=== PATIENT | male | born 1940 | race Caucasian/White ===

== ENCOUNTER → 2017-07-22 | Outpatient (CLI) | payer MEDICARE ==
[~2017-07-22] MED LIST: ADV250 IH; ALPR0.25 PO; ATOR40TA69 PO; ATOR80TA PO; BENZ-17 PO; BENZ-51 PO; CEFU500T67 PO; CETI10CA5 PO; DOXY100C2 PO; FLUT8AER3 IH; FURO20TA6 PO; LEVO500T2 PO; LEVO500T89 PO; MONT10TA21 PO; MONT10TA24 PO; MULT-1258 PO; SERT100T PO; SYMB8060 IH; TIOT18CA3 IH; TIOT4MIS5 IH; TRAZ-144 PO
== END | disposition home or self-care (01) ==
LOC: RAH 13:53
PROVIDERS: ATTEND Family Medicine
DX: M85.88 Other specified disorders of bone density and structure, other site (principal)
CPT/HCPCS: 71100

== ENCOUNTER → 2017-08-05 | Outpatient (CLI) | payer MEDICARE | END | disposition home or self-care (01) | LOC: RAH 15:14 | PROVIDERS: ATTEND Family Medicine | DX: M50.321 Other cervical disc degeneration at C4-C5 level (principal); R07.81 Pleurodynia; R05 Cough | CPT/HCPCS: 71101; 72040 ==

== ENCOUNTER 2017-08-11 08:29 | Inpatient (IN) | payer MEDICARE ==
[~2017-08-11] VITALS: Ht 182.9 cm; Wt 99.8 kg
[~2017-08-11 08:29] MED LIST changes: -ADV250 IH; -ATOR80TA PO; -BENZ-17 PO; -CETI10CA5 PO; -FURO20TA6 PO; -MONT10TA21 PO; -MULT-1258 PO; -SERT100T PO; -SYMB8060 IH; -TIOT4MIS5 IH; -TRAZ-144 PO
[2017-08-11 09:03] LABS: BASOPHILS % (AUTO) 0.2 % (0.0-5.0); EOSINOPHILS % (AUTO) 0.3 % (0.0-8.0); HEMATOCRIT 41.4 % (42-54); LYMPHOCYTES % (AUTO) 11.3 % (21.0-51.0); MEAN CORPUSCULAR HEMOGLOBIN 32.3 pg (27.0-33.0); MEAN CORPUSCULAR HGB CONC 33.7 g/dL (32.0-36.0); MEAN CORPUSCULAR VOLUME 95.7 fL (79-99); MONOCYTES % (AUTO) 6.8 % (3.0-13.0); NEUTROPHILS % (AUTO) 81.4 % (40.0-77.0); PLATELET COUNT (AUTO) 251 K/uL (130-400); RED BLOOD CELL COUNT(AUTO) 4.33 MIL/uL (4.50-6.20); RED CELL DISTRIBUTION WIDTH 15.3 % (11.0-15.5); WHITE BLOOD COUNT (AUTO) 13.7 K/uL (4.8-10.8)
[2017-08-11 09:10] LABS: CREATININE 1.1 mg/dL (0.5-1.5); POTASSIUM 4.1 mmol/L (3.5-5.1)
[2017-08-11 09:15] LABS: ALBUMIN 3.4 g/dL (3.5-5.0); BILIRUBIN,TOTAL 0.5 mg/dL (0.2-1.0); TOTAL PROTEIN, SERUM 7.3 g/dL (6.0-8.3)
[2017-08-11] MEDS ORDERED: CEFTRIAXONE SODIUM 1 GM ONE (09:30)
[2017-08-11] MEDS ORDERED: SODIUM CHLORIDE 0.9% 100 ML IV ONE (09:30)
[2017-08-11] MEDS ORDERED: AZITHROMYCIN 250 MG TABLET PO ONE (09:30)
[2017-08-11] MEDS ORDERED: IOPAMIDOL-370 75 ML VIAL IV ONE (09:41)
[2017-08-11] MEDS ORDERED: SODIUM CHLORIDE 0.9% 1000ML 1,000 ML IV ONE ×2 (09:56→15:10)
[2017-08-11] MEDS ORDERED: METHYLPREDNISOLONE SOD SUCC 40MG/ML 1ML ONE (15:10)
[2017-08-11] MEDS ORDERED: LEVOFLOXACIN 500 MG/D5W 100 ML 100 ML ONE (15:11)
[2017-08-11] MEDS ORDERED: ENOXAPARIN SODIUM 40 MG/0.4 ML SYRINGE SQ ONE (15:11)
[2017-08-11] MEDS ORDERED: IPRATROPIUM/ALBUTEROL SULFATE 3 ML SOLUTION IH ONE ×3 (15:34→23:43)
[2017-08-11] MEDS: SODIUM CHLORIDE 0.9% 1000ML 1,000 ML IV SCH (19:45)
[2017-08-11] MEDS: METHYLPREDNISOLONE SOD SUCC 40MG/ML 1ML IVP SCH (21:00)
[2017-08-11] MEDS: FAMOTIDINE 20MG TAB 20 MG TAB PO SCH (21:00)
[2017-08-11] MEDS: INSULIN R PO SS1 SQ SCH (21:00)
[2017-08-11] MEDS ORDERED: FAMOTIDINE/PF 20 MG/2 ML VIAL IV ONE (21:04)
[2017-08-11] MEDS: IPRATROPIUM/ALBUTEROL SULFATE 3 ML SOLUTION IH SCH (23:49)
[2017-08-12] MEDS ORDERED: METHYLPREDNISOLONE SOD SUCC 40MG/ML 1ML ONE (00:38)
[2017-08-12 01:29] VITALS: BP 152/78
[2017-08-12] MEDS: IPRATROPIUM/ALBUTEROL SULFATE 3 ML SOLUTION IH SCH ×6 (01:42→22:42)
[2017-08-12] MEDS ORDERED: SYMB8060 IH (03:59)
[2017-08-12] MEDS ORDERED: FURO20TA6 PO (03:59)
[2017-08-12] MEDS ORDERED: ADV250 IH (03:59)
[2017-08-12] MEDS ORDERED: SERT100T PO (03:59)
[2017-08-12] MEDS ORDERED: CETI10CA5 PO (03:59)
[2017-08-12] MEDS ORDERED: TRAZ-144 PO (03:59)
[2017-08-12] MEDS ORDERED: MONT10TA21 PO (03:59)
[2017-08-12] MEDS ORDERED: MULT-1258 PO (03:59)
[2017-08-12] MEDS ORDERED: ATOR80TA PO (03:59)
[2017-08-12 05:00] VITALS: BP 148/79
[2017-08-12] MEDS: METHYLPREDNISOLONE SOD SUCC 40MG/ML 1ML IVP SCH ×3 (05:34→21:32)
[2017-08-12 05:46] LABS: HEMATOCRIT 39.9 % (42-54); MEAN CORPUSCULAR HEMOGLOBIN 32.8 pg (27.0-33.0); MEAN CORPUSCULAR VOLUME 96.4 fL (79-99); PLATELET COUNT (AUTO) 268 K/uL (130-400); RED BLOOD CELL COUNT(AUTO) 4.14 MIL/uL (4.50-6.20); RED CELL DISTRIBUTION WIDTH 15.3 % (11.0-15.5); WHITE BLOOD COUNT (AUTO) 9.5 K/uL (4.8-10.8)
[2017-08-12 05:55] LABS: INR 1.1 (0.85-1.15); PARTIAL THROMBOPLASTIN TIME 31.3 SEC (26.3-35.5); PROTHROMBIN TIME 11.5 SEC (9.6-11.6)
[2017-08-12 06:04] LABS: ALBUMIN 3.1 g/dL (3.5-5.0); BILIRUBIN,TOTAL 0.5 mg/dL (0.2-1.0); POTASSIUM 3.9 mmol/L (3.5-5.1)
[2017-08-12 06:24] LABS: B-TYPE NATRIURETIC PEPTIDE 79 pg/mL (0-100)
[2017-08-12] MEDS: INSULIN R PO SS1 SQ SCH ×4 (06:45→21:00)
[2017-08-12 08:59] LABS: ABG BASE EXCESS 0.9 mmol/L (-2.0-3.0); ABG HCO3 24.2 mmol/L (21.0-28.0); ABG OXYGEN SATURATION 89.1 % (95.0-99.0); ABG PCO2 35 mmHg (35-48)
[2017-08-12 09:02] VITALS: BP 141/66
[2017-08-12] MEDS: FAMOTIDINE 20MG TAB 20 MG TAB PO SCH ×2 (09:25→21:32)
[2017-08-12] MEDS: SODIUM CHLORIDE 0.9% 1000ML 1,000 ML IV SCH ×2 (09:26→21:56)
[2017-08-12] MEDS: ENOXAPARIN SODIUM 40 MG/0.4 ML SYRINGE SQ SCH (09:26)
[2017-08-12 11:00] VITALS: BP 144/74
[2017-08-12] MEDS: LEVOFLOXACIN 500 MG/D5W 100 ML 100 ML IV SCH (15:47)
[2017-08-12 16:00] VITALS: BP 129/61
[2017-08-12 20:00] VITALS: BP 137/72
[2017-08-13] VITALS: BP 138/84
[2017-08-13] MEDS: IPRATROPIUM/ALBUTEROL SULFATE 3 ML SOLUTION IH SCH ×4 (02:47→13:52)
[2017-08-13 04:00] VITALS: BP 137/78
[2017-08-13 05:26] LABS: BASOPHILS % (AUTO) 0.1 % (0.0-5.0); LYMPHOCYTES % (AUTO) 6.1 % (21.0-51.0); MEAN CORPUSCULAR HEMOGLOBIN 32.6 pg (27.0-33.0); MEAN CORPUSCULAR HGB CONC 34.2 g/dL (32.0-36.0); MEAN CORPUSCULAR VOLUME 95.6 fL (79-99); MONOCYTES % (AUTO) 5.1 % (3.0-13.0); NEUTROPHILS % (AUTO) 88.7 % (40.0-77.0); PLATELET COUNT (AUTO) 272 K/uL (130-400); RED BLOOD CELL COUNT(AUTO) 3.87 MIL/uL (4.50-6.20); RED CELL DISTRIBUTION WIDTH 15.2 % (11.0-15.5); WHITE BLOOD COUNT (AUTO) 11.8 K/uL (4.8-10.8)
[2017-08-13] MEDS: METHYLPREDNISOLONE SOD SUCC 40MG/ML 1ML IVP SCH ×2 (05:39→13:27)
[2017-08-13 05:56] LABS: POTASSIUM 4.2 mmol/L (3.5-5.1)
[2017-08-13] MEDS: INSULIN R PO SS1 SQ SCH ×2 (06:10→11:30)
[2017-08-13 07:00] VITALS: BP 166/78
[2017-08-13] MEDS: FAMOTIDINE 20MG TAB 20 MG TAB PO SCH (08:24)
[2017-08-13] MEDS: ENOXAPARIN SODIUM 40 MG/0.4 ML SYRINGE SQ SCH (08:25)
[2017-08-13 11:00] VITALS: BP 124/76
[2017-08-13] MEDS: SODIUM CHLORIDE 0.9% 1000ML 1,000 ML IV SCH (11:45)
[2017-08-13] MEDS: LEVOFLOXACIN 500 MG/D5W 100 ML 100 ML IV SCH (15:00)
[2017-08-13] MEDS ORDERED: LEVO500T2 PO (15:41)
[2017-08-13] MEDS ORDERED: BENZ-17 PO (15:43)
[2017-08-13 15:44] VITALS: BP 155/74
[2017-08-13] MEDS ORDERED: IPRATROPIUM 0.5 MG/2.5 ML INH IH SCH (16:00)
== END 2017-08-13 16:25 | disposition home or self-care (01) | DRG 180 ==
LOC: EDH 08:29 → EDHIP 13:42 → 3DH 08-12 00:33
PROVIDERS: ADMIT Family Medicine; ATTEND Family Medicine
DX: C34.90 Malignant neoplasm of unspecified part of unspecified bronchus or lung (principal); J18.9 Pneumonia, unspecified organism; J44.0 Chronic obstructive pulmonary disease with (acute) lower respiratory infection; J45.901 Unspecified asthma with (acute) exacerbation; J44.1 Chronic obstructive pulmonary disease with (acute) exacerbation; Z99.81 Dependence on supplemental oxygen; Z77.090 Contact with and (suspected) exposure to asbestos; E78.5 Hyperlipidemia, unspecified; Z87.891 Personal history of nicotine dependence
CPT/HCPCS: 36415; 36600; 71045; 71046; 71260; 80048; 80053; 82803; 82948; 83880; 85025; 85027; 85610; 85730; 87633; 87804; 93005; 94640; 94664; J0696; J1650; J1956; J2920; J3490; J7030; Q9967

== ENCOUNTER 2017-08-30 20:46 | Inpatient (IN) | payer MEDICARE ==
[~2017-08-30] VITALS: Ht 182.9 cm; Wt 86.9 kg
[~2017-08-30 20:46] MED LIST changes: +ADV250 IH; -ALPR0.25 PO; -ATOR40TA69 PO; +ATOR80TA PO; +BENZ-17 PO; -BENZ-51 PO; -CEFU500T67 PO; +CETI10CA5 PO; -DOXY100C2 PO; +FURO20TA6 PO; -LEVO500T89 PO; +MONT10TA21 PO; -MONT10TA24 PO; +MULT-1258 PO; +SERT100T PO; -TIOT18CA3 IH; +TRAZ-144 PO
[2017-08-30] MEDS ORDERED: METHYLPREDNISOLONE SOD SUCC 125MG/2ML VIAL ONE (21:00)
[2017-08-30] MEDS ORDERED: MORPHINE SULFATE 4 MG/1ML SYG ONE ×2 (21:06→23:46)
[2017-08-30] MEDS ORDERED: ONDANSETRON HCL 4 MG/2 ML VIAL ONE (21:06)
[2017-08-30 21:17] LABS: BASOPHILS % (AUTO) 0.2 % (0.0-5.0); EOSINOPHILS % (AUTO) 0.2 % (0.0-8.0); HEMATOCRIT 41.7 % (42-54); LYMPHOCYTES % (AUTO) 8.4 % (21.0-51.0); MEAN CORPUSCULAR HEMOGLOBIN 31.9 pg (27.0-33.0); MEAN CORPUSCULAR HGB CONC 33.1 g/dL (32.0-36.0); MEAN CORPUSCULAR VOLUME 96.4 fL (79-99); NEUTROPHILS % (AUTO) 84.2 % (40.0-77.0); PLATELET COUNT (AUTO) 269 K/uL (130-400); RED BLOOD CELL COUNT(AUTO) 4.33 MIL/uL (4.50-6.20); WHITE BLOOD COUNT (AUTO) 19.9 K/uL (4.8-10.8)
[2017-08-30 21:20] LABS: ABG HCO3 24.5 mmol/L (21.0-28.0); ABG OXYGEN SATURATION 95.2 % (95.0-99.0); ABG PCO2 40 mmHg (35-48)
[2017-08-30 21:32] LABS: CREATININE 1.2 mg/dL (0.5-1.5); POTASSIUM 4.1 mmol/L (3.5-5.1)
[2017-08-30 21:40] LABS: INR 1.09 (0.85-1.15); PROTHROMBIN TIME 11.4 SEC (9.6-11.6)
[2017-08-30 21:48] LABS: BILIRUBIN,TOTAL 0.7 mg/dL (0.2-1.0); CREATINE KINASE MB 1.1 ng/mL (0.5-3.6); TOTAL PROTEIN, SERUM 7.4 g/dL (6.0-8.3); TROPONIN I 0.32 ng/mL (0.00-0.06)
[2017-08-30] MEDS ORDERED: LEVOFLOXACIN 750 MG/D5W 150 ML 150 ML ONE (22:22)
[2017-08-30] MEDS ORDERED: SODIUM CHLORIDE 0.9% 1000ML 1,000 ML IV ONE (22:22)
[2017-08-30 22:51] LABS: ABG BASE EXCESS -1.5 mmol/L (-2.0-3.0); ABG OXYGEN SATURATION 95.9 % (95.0-99.0); ABG PCO2 38 mmHg (35-48)
[2017-08-31] MEDS ORDERED: IPRATROPIUM/ALBUTEROL SULFATE 3 ML SOLUTION IH ONE (00:29)
[2017-08-31] MEDS ORDERED: MORPHINE SULFATE 4 MG/1ML SYG ONE (03:34)
[2017-08-31 04:58] LABS: BASOPHILS % (AUTO) 0.2 % (0.0-5.0); HEMATOCRIT 38.7 % (42-54); LYMPHOCYTES % (AUTO) 3.4 % (21.0-51.0); MEAN CORPUSCULAR HEMOGLOBIN 32.6 pg (27.0-33.0); MEAN CORPUSCULAR VOLUME 95.9 fL (79-99); MONOCYTES % (AUTO) 2.2 % (3.0-13.0); NEUTROPHILS % (AUTO) 94.2 % (40.0-77.0); PLATELET COUNT (AUTO) 198 K/uL (130-400); RED BLOOD CELL COUNT(AUTO) 4.03 MIL/uL (4.50-6.20); RED CELL DISTRIBUTION WIDTH 15.9 % (11.0-15.5); WHITE BLOOD COUNT (AUTO) 13.5 K/uL (4.8-10.8)
[2017-08-31 05:02] VITALS: BP 128/74
[2017-08-31 05:20] LABS: ABG HCO3 25.1 mmol/L (21.0-28.0); ABG OXYGEN SATURATION 98.9 % (95.0-99.0); ABG PCO2 38 mmHg (35-48)
[2017-08-31 05:24] LABS: CREATINE KINASE MB 1.8 ng/mL (0.5-3.6); CREATININE 1.1 mg/dL (0.5-1.5); POTASSIUM 4.6 mmol/L (3.5-5.1); TROPONIN I 0.45 ng/mL (0.00-0.06)
[2017-08-31] MEDS ORDERED: IPRATROPIUM/ALBUTEROL SULFATE 3 ML SOLUTION IH PRN (05:45)
[2017-08-31] MEDS ORDERED: GLUCAGON 1MG KIT 1 MG ML IM PRN (05:45)
[2017-08-31] MEDS ORDERED: ONDANSETRON HCL 4 MG/2 ML VIAL IVP PRN (05:45)
[2017-08-31] MEDS ORDERED: HYDROCODONE/ACETAMINOPHEN 5/325 MG TAB PO PRN (05:45)
[2017-08-31] MEDS ORDERED: DEXTROSE 50%-WATER 50 ML DISP.SYRIN IV PRN (05:45)
[2017-08-31] MEDS ORDERED: MORPHINE SULFATE 2 MG/ML 1ML SYG IVP PRN (05:45)
[2017-08-31] MEDS ORDERED: SODIUM CHLORIDE 0.9% 1000ML 1,000 ML IV SCH (05:45)
[2017-08-31] MEDS: IPRATROPIUM/ALBUTEROL SULFATE 3 ML SOLUTION IH SCH ×3 (06:28→16:58)
[2017-08-31] MEDS: INSULIN R PO SS1 SQ SCH ×4 (06:43→21:00)
[2017-08-31] MEDS: METHYLPREDNISOLONE SOD SUCC 40MG/ML 1ML IVP SCH ×3 (06:51→21:29)
[2017-08-31 07:20] VITALS: BP 129/75
[2017-08-31] MEDS: FAMOTIDINE 20MG TAB 20 MG TAB PO SCH ×2 (08:29→21:30)
[2017-08-31] MEDS: ENOXAPARIN SODIUM 30 MG/0.3 ML SQ SCH (08:29)
[2017-08-31] MEDS ORDERED: NITROGLYCERIN 0.4 MG SL TAB SL PRN (09:00)
[2017-08-31 11:03] VITALS: BP 154/69
[2017-08-31 11:40] LABS: CREATINE KINASE MB 2.1 ng/mL (0.5-3.6); TROPONIN I 0.33 ng/mL (0.00-0.06)
[2017-08-31] MEDS ORDERED: BENZONATATE 100 MG CAPSULE PO PRN (13:30)
[2017-08-31] MEDS ORDERED: CEFEPIME 1GM+NS 50ML 50 ML IV SCH (13:30)
[2017-08-31 14:53] LABS: APPEARANCE,URINE Clear (CLEAR); BILIRUBIN,URINE Negative (NEGATIVE); COLOR,URINE Yellow (YELLOW); GLUCOSE, URINE (UA) Negative (NEGATIVE); KETONES,URINE 15 mg/dL (NEGATIVE); LEUKOCYTE ESTERASE ,URINE Negative (NEGATIVE); NITRATE,URINE Negative (NEGATIVE); OCCULT BLOOD,URINE Negative (NEGATIVE); PROTEIN,URINE Negative (NEGATIVE); UROBILINOGEN,URINE 0.2 mg/dL (0.2-1.0)
[2017-08-31] MEDS: CEFEPIME HCL 1 GM VIAL IVP SCH ×2 (15:13→22:57)
[2017-08-31 16:07] VITALS: BP 143/78
[2017-08-31] MEDS: BUDESONIDE 0.5 MG/2 ML INH IH SCH (17:04)
[2017-08-31 19:50] VITALS: BP 136/72
[2017-08-31] MEDS ORDERED: LEVOFLOXACIN 750 MG/D5W 150 ML 150 ML IV SCH (21:00)
[2017-08-31] MEDS: CETIRIZINE HCL 5 MG TABLET PO SCH (21:30)
[2017-08-31] MEDS: OSELTAMIVIR PHOSPHATE 75 MG CAP PO SCH (21:30)
[2017-08-31] MEDS: ATORVASTATIN CALCIUM 40 MG TABLET PO SCH (21:30)
[2017-09-01] VITALS (7 sets, daily range): BP systolic 111–147; BP diastolic 56–87
[2017-09-01] MEDS: IPRATROPIUM/ALBUTEROL SULFATE 3 ML SOLUTION IH SCH (00:20)
[2017-09-01] MEDS: IPRATROPIUM 0.5 MG/2.5 ML INH IH SCH ×6 (03:45→22:07)
[2017-09-01] MEDS ORDERED: MAGNESIUM 2GM PREMIX 50ML 50 ML IV ONE (03:45)
[2017-09-01 04:32] LABS: HEMATOCRIT 36.3 % (42-54); MEAN CORPUSCULAR HEMOGLOBIN 32.7 pg (27.0-33.0); MEAN CORPUSCULAR HGB CONC 34.2 g/dL (32.0-36.0); MEAN CORPUSCULAR VOLUME 95.7 fL (79-99); PLATELET COUNT (AUTO) 206 K/uL (130-400); RED CELL DISTRIBUTION WIDTH 15.1 % (11.0-15.5); WHITE BLOOD COUNT (AUTO) 16.8 K/uL (4.8-10.8)
[2017-09-01 04:40] LABS: INR 1.18 (0.85-1.15); PARTIAL THROMBOPLASTIN TIME 29.9 SEC (26.3-35.5); PROTHROMBIN TIME 12.3 SEC (9.6-11.6)
[2017-09-01 04:58] LABS: ALBUMIN 2.7 g/dL (3.5-5.0); BILIRUBIN,TOTAL 0.7 mg/dL (0.2-1.0); MAGNESIUM 2.1 mg/dL (1.80-2.40); PHOSPHORUS 3.4 mg/dL (2.5-4.9); POTASSIUM 4.3 mmol/L (3.5-5.1); THYROID STIMULATING HORMONE 0.59 uIU/mL (0.36-3.74); TOTAL PROTEIN, SERUM 6.4 g/dL (6.0-8.3)
[2017-09-01] MEDS: METHYLPREDNISOLONE SOD SUCC 40MG/ML 1ML IVP SCH ×3 (05:43→21:31)
[2017-09-01] MEDS: CEFEPIME HCL 1 GM VIAL IVP SCH ×3 (06:26→23:28)
[2017-09-01] MEDS: INSULIN R PO SS1 SQ SCH ×4 (06:27→21:00)
[2017-09-01] MEDS: BUDESONIDE 0.5 MG/2 ML INH IH SCH ×2 (06:38→17:22)
[2017-09-01] MEDS: SERTRALINE HCL 50 MG TABLET PO SCH (08:33)
[2017-09-01] MEDS: OSELTAMIVIR PHOSPHATE 75 MG CAP PO SCH ×2 (08:33→21:31)
[2017-09-01] MEDS: MONTELUKAST SODIUM 10 MG TAB PO SCH (08:33)
[2017-09-01] MEDS: FAMOTIDINE 20MG TAB 20 MG TAB PO SCH ×2 (08:33→21:31)
[2017-09-01] MEDS: MULTIVITAMIN WITH MINERALS TABLET PO SCH (08:33)
[2017-09-01] MEDS: ENOXAPARIN SODIUM 30 MG/0.3 ML SQ SCH (08:35)
[2017-09-01] MEDS ORDERED: SUB TO BREO ELLIPTA 100MCG/25MCG PER P&T IH SCH (09:00)
[2017-09-01] MEDS: VERAPAMIL HCL 2.5 MG/ML VIAL IVP PRN (15:50)
[2017-09-01] MEDS ORDERED: VERAPAMIL HCL 2.5 MG/ML VIAL IVP ONE (16:15)
[2017-09-01] MEDS: DILTIAZEM HCL 60 MG TABLET PO SCH ×2 (17:21→23:28)
[2017-09-01] MEDS: CETIRIZINE HCL 5 MG TABLET PO SCH (21:31)
[2017-09-01] MEDS: DOXYCYCLINE HYCLATE 100 MG TABLET PO SCH (21:31)
[2017-09-01] MEDS: ATORVASTATIN CALCIUM 40 MG TABLET PO SCH (21:31)
[2017-09-02] VITALS (7 sets, daily range): BP systolic 117–147; BP diastolic 53–80
[2017-09-02] MEDS: IPRATROPIUM 0.5 MG/2.5 ML INH IH SCH ×4 (02:08→18:29)
[2017-09-02 04:37] LABS: MEAN CORPUSCULAR HEMOGLOBIN 32.6 pg (27.0-33.0); MEAN CORPUSCULAR HGB CONC 34.4 g/dL (32.0-36.0); MEAN CORPUSCULAR VOLUME 94.8 fL (79-99); PLATELET COUNT (AUTO) 211 K/uL (130-400); RED CELL DISTRIBUTION WIDTH 15.4 % (11.0-15.5); WHITE BLOOD COUNT (AUTO) 14.9 K/uL (4.8-10.8)
[2017-09-02 04:53] LABS: MAGNESIUM 2.3 mg/dL (1.80-2.40); PHOSPHORUS 3.7 mg/dL (2.5-4.9); POTASSIUM 4.1 mmol/L (3.5-5.1)
[2017-09-02] MEDS: CEFEPIME HCL 1 GM VIAL IVP SCH ×3 (06:12→22:57)
[2017-09-02] MEDS: METHYLPREDNISOLONE SOD SUCC 40MG/ML 1ML IVP SCH ×3 (06:13→22:57)
[2017-09-02] MEDS: DILTIAZEM HCL 60 MG TABLET PO SCH ×3 (06:13→18:33)
[2017-09-02] MEDS: INSULIN R PO SS1 SQ SCH ×4 (06:14→20:39)
[2017-09-02] MEDS: BUDESONIDE 0.5 MG/2 ML INH IH SCH ×2 (06:18→18:50)
[2017-09-02] MEDS: VERAPAMIL HCL 2.5 MG/ML VIAL IVP PRN (06:51)
[2017-09-02] MEDS ORDERED: METOPROLOL TARTRATE 1 MG/ML 5ML VIAL IV SCH (08:30)
[2017-09-02] MEDS: FAMOTIDINE 20MG TAB 20 MG TAB PO SCH ×2 (10:12→20:58)
[2017-09-02] MEDS: MULTIVITAMIN WITH MINERALS TABLET PO SCH (10:12)
[2017-09-02] MEDS: OSELTAMIVIR PHOSPHATE 75 MG CAP PO SCH ×2 (10:12→21:01)
[2017-09-02] MEDS: DOXYCYCLINE HYCLATE 100 MG TABLET PO SCH ×2 (10:12→20:58)
[2017-09-02] MEDS: SERTRALINE HCL 50 MG TABLET PO SCH (10:12)
[2017-09-02] MEDS: MONTELUKAST SODIUM 10 MG TAB PO SCH (10:12)
[2017-09-02] MEDS: ENOXAPARIN SODIUM 30 MG/0.3 ML SQ SCH (10:33)
[2017-09-02] MEDS: RIVAROXABAN 20 MG TABLET PO SCH (10:35)
[2017-09-02] MEDS ORDERED: SUB TO IPRATROPIUM 0.5MG/2.5ML PER P&T IH SCH (11:30)
[2017-09-02] MEDS: GUAIFENESIN-CODEINE 5 ML SYRUP PO PRN (11:56)
[2017-09-02] MEDS ORDERED: TIOT4MIS5 IH (18:45)
[2017-09-02] MEDS: CETIRIZINE HCL 5 MG TABLET PO SCH (20:57)
[2017-09-02] MEDS: ATORVASTATIN CALCIUM 40 MG TABLET PO SCH (20:58)
[2017-09-03] VITALS (8 sets, daily range): BP systolic 119–151; BP diastolic 51–89
[2017-09-03] MEDS: IPRATROPIUM 0.5 MG/2.5 ML INH IH SCH ×2 (00:11→06:03)
[2017-09-03] MEDS: DILTIAZEM HCL 60 MG TABLET PO SCH ×5 (00:46→23:55)
[2017-09-03] MEDS: VERAPAMIL HCL 2.5 MG/ML VIAL IVP PRN (01:47)
[2017-09-03 04:00] LABS: HEMATOCRIT 38.7 % (42-54); MEAN CORPUSCULAR HEMOGLOBIN 31.9 pg (27.0-33.0); MEAN CORPUSCULAR HGB CONC 33.6 g/dL (32.0-36.0); MEAN CORPUSCULAR VOLUME 94.8 fL (79-99); PLATELET COUNT (AUTO) 220 K/uL (130-400); RED BLOOD CELL COUNT(AUTO) 4.08 MIL/uL (4.50-6.20); WHITE BLOOD COUNT (AUTO) 18.6 K/uL (4.8-10.8)
[2017-09-03 04:07] LABS: CREATININE 1.1 mg/dL (0.5-1.5); MAGNESIUM 2.3 mg/dL (1.80-2.40); PHOSPHORUS 3.6 mg/dL (2.5-4.9); POTASSIUM 4.3 mmol/L (3.5-5.1)
[2017-09-03] MEDS: BUDESONIDE 0.5 MG/2 ML INH IH SCH ×2 (06:03→21:45)
[2017-09-03] MEDS: METHYLPREDNISOLONE SOD SUCC 40MG/ML 1ML IVP SCH ×3 (06:57→22:37)
[2017-09-03] MEDS: INSULIN R PO SS1 SQ SCH ×4 (07:30→21:00)
[2017-09-03] MEDS: CEFEPIME HCL 1 GM VIAL IVP SCH ×3 (08:27→23:55)
[2017-09-03] MEDS: SERTRALINE HCL 50 MG TABLET PO SCH (08:27)
[2017-09-03] MEDS: MULTIVITAMIN WITH MINERALS TABLET PO SCH (08:27)
[2017-09-03] MEDS: DOXYCYCLINE HYCLATE 100 MG TABLET PO SCH ×2 (08:27→20:46)
[2017-09-03] MEDS: FAMOTIDINE 20MG TAB 20 MG TAB PO SCH ×2 (08:27→20:45)
[2017-09-03] MEDS: RIVAROXABAN 20 MG TABLET PO SCH (08:27)
[2017-09-03] MEDS: OSELTAMIVIR PHOSPHATE 75 MG CAP PO SCH ×2 (08:27→20:46)
[2017-09-03] MEDS: MONTELUKAST SODIUM 10 MG TAB PO SCH (08:27)
[2017-09-03] MEDS: GUAIFENESIN-CODEINE 5 ML SYRUP PO PRN (08:28)
[2017-09-03] MEDS: METOPROLOL TARTRATE 1 MG/ML 5ML VIAL IV PRN ×2 (09:27→13:40)
[2017-09-03] MEDS: DIGOXIN 250 MCG/ML 2ML AMP IV SCH ×3 (09:45→16:04)
[2017-09-03] MEDS: IPRATROPIUM/ALBUTEROL SULFATE 3 ML SOLUTION IH PRN ×2 (13:22→21:56)
[2017-09-03] MEDS: CETIRIZINE HCL 5 MG TABLET PO SCH (20:46)
[2017-09-03] MEDS: ATORVASTATIN CALCIUM 40 MG TABLET PO SCH (20:46)
[2017-09-03] MEDS ORDERED: DIGOXIN 250 MCG/ML 2ML AMP IV ONE (21:00)
[2017-09-04 03:51] VITALS: BP 126/53
[2017-09-04 04:02] LABS: HEMATOCRIT 38.7 % (42-54); MEAN CORPUSCULAR HEMOGLOBIN 31.6 pg (27.0-33.0); MEAN CORPUSCULAR HGB CONC 33.3 g/dL (32.0-36.0); MEAN CORPUSCULAR VOLUME 94.8 fL (79-99); PLATELET COUNT (AUTO) 210 K/uL (130-400); RED BLOOD CELL COUNT(AUTO) 4.09 MIL/uL (4.50-6.20); RED CELL DISTRIBUTION WIDTH 15.1 % (11.0-15.5)
[2017-09-04 04:17] LABS: DIGOXIN 0.84 ng/mL (0.50-2.00); MAGNESIUM 2.3 mg/dL (1.80-2.40); POTASSIUM 4.3 mmol/L (3.5-5.1)
[2017-09-04 05:02] LABS: B-TYPE NATRIURETIC PEPTIDE 167 pg/mL (0-100)
[2017-09-04] MEDS: DILTIAZEM HCL 60 MG TABLET PO SCH ×4 (05:27→23:59)
[2017-09-04] MEDS: METHYLPREDNISOLONE SOD SUCC 40MG/ML 1ML IVP SCH ×3 (05:30→21:51)
[2017-09-04] MEDS: BUDESONIDE 0.5 MG/2 ML INH IH SCH ×2 (06:02→18:21)
[2017-09-04] MEDS: CEFEPIME HCL 1 GM VIAL IVP SCH ×3 (06:20→23:59)
[2017-09-04 07:00] VITALS: BP 133/87
[2017-09-04] MEDS: INSULIN R PO SS1 SQ SCH ×4 (07:30→21:00)
[2017-09-04] MEDS: OSELTAMIVIR PHOSPHATE 75 MG CAP PO SCH ×2 (08:42→20:54)
[2017-09-04] MEDS: MULTIVITAMIN WITH MINERALS TABLET PO SCH (08:42)
[2017-09-04] MEDS: MONTELUKAST SODIUM 10 MG TAB PO SCH (08:42)
[2017-09-04] MEDS: DIGOXIN 125 MCG TABLET PO SCH (08:42)
[2017-09-04] MEDS: RIVAROXABAN 20 MG TABLET PO SCH (08:42)
[2017-09-04] MEDS: FAMOTIDINE 20MG TAB 20 MG TAB PO SCH ×2 (08:42→20:54)
[2017-09-04] MEDS: DOXYCYCLINE HYCLATE 100 MG TABLET PO SCH ×2 (08:42→20:54)
[2017-09-04] MEDS: SERTRALINE HCL 50 MG TABLET PO SCH (08:43)
[2017-09-04] MEDS: VERAPAMIL HCL 2.5 MG/ML VIAL IVP PRN (09:32)
[2017-09-04] MEDS: GUAIFENESIN-CODEINE 5 ML SYRUP PO PRN (10:50)
[2017-09-04 11:00] VITALS: BP 139/76
[2017-09-04 16:00] VITALS: BP 138/77
[2017-09-04] MEDS: IPRATROPIUM/ALBUTEROL SULFATE 3 ML SOLUTION IH PRN (18:23)
[2017-09-04 19:26] VITALS: BP 129/52
[2017-09-04] MEDS: ATORVASTATIN CALCIUM 40 MG TABLET PO SCH (20:54)
[2017-09-04] MEDS: CETIRIZINE HCL 5 MG TABLET PO SCH (20:54)
[2017-09-04 23:32] VITALS: BP 135/78
[2017-09-05 03:52] VITALS: BP 133/80
[2017-09-05] MEDS: METHYLPREDNISOLONE SOD SUCC 40MG/ML 1ML IVP SCH ×2 (06:02→12:29)
[2017-09-05] MEDS: DILTIAZEM HCL 60 MG TABLET PO SCH ×4 (06:03→23:36)
[2017-09-05] MEDS: BUDESONIDE 0.5 MG/2 ML INH IH SCH ×2 (06:08→18:45)
[2017-09-05] MEDS: CEFEPIME HCL 1 GM VIAL IVP SCH ×3 (06:25→23:35)
[2017-09-05] MEDS: INSULIN R PO SS1 SQ SCH ×4 (06:26→21:00)
[2017-09-05 07:00] VITALS: BP 144/75
[2017-09-05] MEDS: DOXYCYCLINE HYCLATE 100 MG TABLET PO SCH ×2 (08:17→20:43)
[2017-09-05] MEDS: MULTIVITAMIN WITH MINERALS TABLET PO SCH (08:17)
[2017-09-05] MEDS: FAMOTIDINE 20MG TAB 20 MG TAB PO SCH ×2 (08:17→20:44)
[2017-09-05] MEDS: DIGOXIN 125 MCG TABLET PO SCH (08:17)
[2017-09-05] MEDS: OSELTAMIVIR PHOSPHATE 75 MG CAP PO SCH (08:17)
[2017-09-05] MEDS: RIVAROXABAN 20 MG TABLET PO SCH (08:17)
[2017-09-05] MEDS: SERTRALINE HCL 50 MG TABLET PO SCH (08:17)
[2017-09-05] MEDS: MONTELUKAST SODIUM 10 MG TAB PO SCH (08:17)
[2017-09-05] MEDS ORDERED: DIGOXIN 250 MCG/ML 2ML AMP IV ONE (09:00)
[2017-09-05] MEDS: ACETAMINOPHEN 325 MG TAB PO SCH ×3 (09:53→22:00)
[2017-09-05 11:00] VITALS: BP 140/76
[2017-09-05 16:00] VITALS: BP 154/73
[2017-09-05] MEDS: ACETAMINOPHEN 325 MG TAB PO PRN (18:04)
[2017-09-05] MEDS: LORAZEPAM 0.5 MG TABLET PO PRN (18:04)
[2017-09-05 19:38] VITALS: BP 150/63
[2017-09-05] MEDS: ATORVASTATIN CALCIUM 40 MG TABLET PO SCH (20:43)
[2017-09-05] MEDS: CETIRIZINE HCL 5 MG TABLET PO SCH (20:44)
[2017-09-05 23:41] VITALS: BP 143/78
[2017-09-06] VITALS (7 sets, daily range): BP systolic 125–158; BP diastolic 62–88
[2017-09-06] MEDS: ACETAMINOPHEN 325 MG TAB PO PRN (01:13)
[2017-09-06 04:42] LABS: HEMATOCRIT 38.3 % (42-54); MEAN CORPUSCULAR HEMOGLOBIN 32.3 pg (27.0-33.0); MEAN CORPUSCULAR HGB CONC 34.5 g/dL (32.0-36.0); MEAN CORPUSCULAR VOLUME 93.7 fL (79-99); PLATELET COUNT (AUTO) 150 K/uL (130-400); RED BLOOD CELL COUNT(AUTO) 4.09 MIL/uL (4.50-6.20); RED CELL DISTRIBUTION WIDTH 14.6 % (11.0-15.5); WHITE BLOOD COUNT (AUTO) 25.1 K/uL (4.8-10.8)
[2017-09-06 04:56] LABS: B-TYPE NATRIURETIC PEPTIDE 129 pg/mL (0-100)
[2017-09-06 04:59] LABS: POTASSIUM 4.1 mmol/L (3.5-5.1)
[2017-09-06] MEDS: DILTIAZEM HCL 60 MG TABLET PO SCH ×3 (05:29→18:12)
[2017-09-06] MEDS: CEFEPIME HCL 1 GM VIAL IVP SCH ×3 (05:29→22:13)
[2017-09-06] MEDS: INSULIN R PO SS1 SQ SCH ×4 (05:39→21:00)
[2017-09-06 05:48] LABS: BAND NEUTROPHILS % (MANUAL) 3 % (0-2); LYMPHOCYTES % (MANUAL) 1 % (22-44); MAN.DIFF COMMENT-IMPRESSION MANUAL DIFFERENTIAL; MONOCYTES % (MANUAL) 9 % (2-9); PLATELET MORPHOLOGY COMMENT ADEQUATE; SEGMENTED NEUTROPHILS % 87 % (40-70)
[2017-09-06] MEDS: ACETAMINOPHEN 325 MG TAB PO SCH ×3 (06:00→22:15)
[2017-09-06] MEDS: BUDESONIDE 0.5 MG/2 ML INH IH SCH ×2 (06:29→19:30)
[2017-09-06] MEDS: DIGOXIN 125 MCG TABLET PO SCH (09:10)
[2017-09-06] MEDS: FAMOTIDINE 20MG TAB 20 MG TAB PO SCH ×2 (09:10→22:14)
[2017-09-06] MEDS: DOXYCYCLINE HYCLATE 100 MG TABLET PO SCH ×2 (09:10→22:14)
[2017-09-06] MEDS: PREDNISONE 20 MG TABLET PO SCH (09:10)
[2017-09-06] MEDS: MULTIVITAMIN WITH MINERALS TABLET PO SCH (09:10)
[2017-09-06] MEDS: SERTRALINE HCL 50 MG TABLET PO SCH (09:10)
[2017-09-06] MEDS: RIVAROXABAN 20 MG TABLET PO SCH (09:10)
[2017-09-06] MEDS: MONTELUKAST SODIUM 10 MG TAB PO SCH (09:10)
[2017-09-06] MEDS ORDERED: LACTULOSE 20 GM/30 ML UDCUP PO SCH (13:00)
[2017-09-06] MEDS: METOPROLOL TARTRATE 1 MG/ML 5ML VIAL IV PRN (13:33)
[2017-09-06] MEDS: IPRATROPIUM/ALBUTEROL SULFATE 3 ML SOLUTION IH PRN ×2 (14:02→22:32)
[2017-09-06] MEDS: CETIRIZINE HCL 5 MG TABLET PO SCH (22:14)
[2017-09-06] MEDS: ATORVASTATIN CALCIUM 40 MG TABLET PO SCH (22:14)
[2017-09-07] MEDS: DILTIAZEM HCL 60 MG TABLET PO SCH ×4 (00:04→17:26)
[2017-09-07] MEDS: VERAPAMIL HCL 2.5 MG/ML VIAL IVP PRN (03:59)
[2017-09-07 04:00] VITALS: BP 141/78
[2017-09-07] MEDS: INSULIN R PO SS1 SQ SCH ×4 (05:39→21:21)
[2017-09-07] MEDS: ACETAMINOPHEN 325 MG TAB PO SCH ×3 (06:02→21:17)
[2017-09-07] MEDS: CEFEPIME HCL 1 GM VIAL IVP SCH ×3 (06:03→22:31)
[2017-09-07] MEDS: BUDESONIDE 0.5 MG/2 ML INH IH SCH ×2 (06:16→17:09)
[2017-09-07] MEDS: IPRATROPIUM/ALBUTEROL SULFATE 3 ML SOLUTION IH PRN ×3 (06:17→22:27)
[2017-09-07 07:12] VITALS: BP 152/88
[2017-09-07] MEDS: RIVAROXABAN 20 MG TABLET PO SCH (08:58)
[2017-09-07] MEDS: DOXYCYCLINE HYCLATE 100 MG TABLET PO SCH ×2 (08:58→21:16)
[2017-09-07] MEDS: FAMOTIDINE 20MG TAB 20 MG TAB PO SCH ×2 (08:58→21:16)
[2017-09-07] MEDS: MULTIVITAMIN WITH MINERALS TABLET PO SCH (08:59)
[2017-09-07] MEDS: PREDNISONE 20 MG TABLET PO SCH (08:59)
[2017-09-07] MEDS: MONTELUKAST SODIUM 10 MG TAB PO SCH (08:59)
[2017-09-07] MEDS: DIGOXIN 125 MCG TABLET PO SCH (08:59)
[2017-09-07] MEDS: SERTRALINE HCL 50 MG TABLET PO SCH (08:59)
[2017-09-07] MEDS: METOPROLOL TARTRATE 1 MG/ML 5ML VIAL IV PRN (09:02)
[2017-09-07 11:26] VITALS: BP 132/72
[2017-09-07 16:09] VITALS: BP 137/65
[2017-09-07 19:38] VITALS: BP 129/65
[2017-09-07] MEDS: CETIRIZINE HCL 5 MG TABLET PO SCH (21:16)
[2017-09-07] MEDS: ATORVASTATIN CALCIUM 40 MG TABLET PO SCH (21:16)
[2017-09-07 23:23] VITALS: BP 133/70
[2017-09-08] MEDS: DILTIAZEM HCL 60 MG TABLET PO SCH ×5 (00:50→23:46)
[2017-09-08 04:03] VITALS: BP 143/65
[2017-09-08] MEDS: INSULIN R PO SS1 SQ SCH ×4 (05:49→20:42)
[2017-09-08] MEDS: ACETAMINOPHEN 325 MG TAB PO SCH ×3 (05:54→20:49)
[2017-09-08] MEDS: CEFEPIME HCL 1 GM VIAL IVP SCH ×3 (06:01→23:42)
[2017-09-08] MEDS: IPRATROPIUM/ALBUTEROL SULFATE 3 ML SOLUTION IH PRN ×3 (06:20→21:29)
[2017-09-08] MEDS: BUDESONIDE 0.5 MG/2 ML INH IH SCH ×2 (06:20→16:48)
[2017-09-08 07:17] VITALS: BP 142/80
[2017-09-08 08:22] LABS: HEMATOCRIT 37.5 % (42-54); MEAN CORPUSCULAR HEMOGLOBIN 31.7 pg (27.0-33.0); MEAN CORPUSCULAR HGB CONC 33.5 g/dL (32.0-36.0); MEAN CORPUSCULAR VOLUME 94.7 fL (79-99); PLATELET COUNT (AUTO) 92 K/uL (130-400); RED BLOOD CELL COUNT(AUTO) 3.96 MIL/uL (4.50-6.20); RED CELL DISTRIBUTION WIDTH 15.1 % (11.0-15.5); WHITE BLOOD COUNT (AUTO) 27.2 K/uL (4.8-10.8)
[2017-09-08 08:46] LABS: CREATININE 1.2 mg/dL (0.5-1.5); POTASSIUM 3.9 mmol/L (3.5-5.1)
[2017-09-08] MEDS: LORAZEPAM 0.5 MG TABLET PO PRN (10:24)
[2017-09-08] MEDS: MONTELUKAST SODIUM 10 MG TAB PO SCH (10:24)
[2017-09-08] MEDS: PREDNISONE 20 MG TABLET PO SCH (10:24)
[2017-09-08] MEDS: DIGOXIN 125 MCG TABLET PO SCH ×2 (10:24→11:24)
[2017-09-08] MEDS: SERTRALINE HCL 50 MG TABLET PO SCH (10:24)
[2017-09-08] MEDS: FAMOTIDINE 20MG TAB 20 MG TAB PO SCH ×2 (10:24→20:46)
[2017-09-08] MEDS: DOXYCYCLINE HYCLATE 100 MG TABLET PO SCH ×2 (10:24→20:46)
[2017-09-08] MEDS: RIVAROXABAN 20 MG TABLET PO SCH (10:24)
[2017-09-08] MEDS: MULTIVITAMIN WITH MINERALS TABLET PO SCH (10:25)
[2017-09-08 11:32] VITALS: BP 128/69
[2017-09-08 16:37] VITALS: BP 163/75
[2017-09-08 19:59] VITALS: BP 128/67
[2017-09-08] MEDS: CETIRIZINE HCL 5 MG TABLET PO SCH (20:46)
[2017-09-08] MEDS: ATORVASTATIN CALCIUM 40 MG TABLET PO SCH (20:46)
[2017-09-09] VITALS (7 sets, daily range): BP systolic 93–184; BP diastolic 48–86
[2017-09-09] MEDS: METOPROLOL TARTRATE 1 MG/ML 5ML VIAL IV PRN (04:23)
[2017-09-09 04:28] LABS: INR 1.19 (0.85-1.15); PARTIAL THROMBOPLASTIN TIME 31.1 SEC (26.3-35.5); PROTHROMBIN TIME 12.5 SEC (9.6-11.6)
[2017-09-09] MEDS: DILTIAZEM HCL 60 MG TABLET PO SCH ×4 (05:24→23:05)
[2017-09-09] MEDS: ACETAMINOPHEN 325 MG TAB PO SCH ×3 (05:25→20:45)
[2017-09-09] MEDS: CEFEPIME HCL 1 GM VIAL IVP SCH ×3 (05:25→23:05)
[2017-09-09] MEDS: INSULIN R PO SS1 SQ SCH ×4 (05:29→21:00)
[2017-09-09] MEDS: IPRATROPIUM/ALBUTEROL SULFATE 3 ML SOLUTION IH PRN (06:02)
[2017-09-09] MEDS: BUDESONIDE 0.5 MG/2 ML INH IH SCH ×2 (06:15→18:19)
[2017-09-09] MEDS: MONTELUKAST SODIUM 10 MG TAB PO SCH (08:02)
[2017-09-09] MEDS: PREDNISONE 20 MG TABLET PO SCH (08:02)
[2017-09-09] MEDS: SERTRALINE HCL 50 MG TABLET PO SCH (08:02)
[2017-09-09] MEDS: DOXYCYCLINE HYCLATE 100 MG TABLET PO SCH ×2 (08:02→20:46)
[2017-09-09] MEDS: DIGOXIN 125 MCG TABLET PO SCH (08:03)
[2017-09-09] MEDS: MULTIVITAMIN WITH MINERALS TABLET PO SCH (08:03)
[2017-09-09] MEDS: FAMOTIDINE 20MG TAB 20 MG TAB PO SCH ×2 (08:03→20:45)
[2017-09-09] MEDS: ATORVASTATIN CALCIUM 40 MG TABLET PO SCH (20:45)
[2017-09-09] MEDS: CETIRIZINE HCL 5 MG TABLET PO SCH (20:46)
[2017-09-09] MEDS: VERAPAMIL HCL 2.5 MG/ML VIAL IVP PRN (23:06)
[2017-09-10] MEDS: METOPROLOL TARTRATE 1 MG/ML 5ML VIAL IV PRN ×3 (02:39→10:08)
[2017-09-10] MEDS: VERAPAMIL HCL 2.5 MG/ML VIAL IVP PRN ×3 (03:02→19:12)
[2017-09-10 03:03] VITALS: BP 141/83
[2017-09-10] MEDS: CEFEPIME HCL 1 GM VIAL IVP SCH ×3 (05:21→23:27)
[2017-09-10] MEDS: DILTIAZEM HCL 60 MG TABLET PO SCH ×4 (05:22→23:27)
[2017-09-10] MEDS: ACETAMINOPHEN 325 MG TAB PO SCH ×3 (05:30→21:08)
[2017-09-10] MEDS: BUDESONIDE 0.5 MG/2 ML INH IH SCH ×2 (06:11→19:05)
[2017-09-10] MEDS: INSULIN R PO SS1 SQ SCH ×4 (06:31→21:00)
[2017-09-10 07:00] VITALS: BP 146/64
[2017-09-10] MEDS: MULTIVITAMIN WITH MINERALS TABLET PO SCH (09:58)
[2017-09-10] MEDS: FAMOTIDINE 20MG TAB 20 MG TAB PO SCH ×2 (09:58→21:09)
[2017-09-10] MEDS: PREDNISONE 20 MG TABLET PO SCH (09:59)
[2017-09-10] MEDS: DOXYCYCLINE HYCLATE 100 MG TABLET PO SCH ×2 (09:59→21:06)
[2017-09-10] MEDS: SERTRALINE HCL 50 MG TABLET PO SCH (09:59)
[2017-09-10] MEDS: MONTELUKAST SODIUM 10 MG TAB PO SCH (09:59)
[2017-09-10] MEDS: DIGOXIN 125 MCG TABLET PO SCH (10:00)
[2017-09-10 11:00] VITALS: BP 125/70
[2017-09-10] MEDS: LORAZEPAM 0.5 MG TABLET PO PRN (13:42)
[2017-09-10 16:32] VITALS: BP 136/73
[2017-09-10] MEDS ORDERED: METOPROLOL TARTRATE 25 MG TAB PO SCH (17:15)
[2017-09-10] MEDS: IPRATROPIUM 0.5 MG/2.5 ML INH IH SCH ×2 (18:50→23:36)
[2017-09-10 19:02] VITALS: BP 131/78
[2017-09-10] MEDS: CETIRIZINE HCL 5 MG TABLET PO SCH (21:06)
[2017-09-10] MEDS: METOPROLOL TARTRATE 25 MG TAB PO SCH (21:07)
[2017-09-10] MEDS: ATORVASTATIN CALCIUM 40 MG TABLET PO SCH (21:07)
[2017-09-10 23:24] VITALS: BP 169/82
[2017-09-11 03:10] VITALS: BP 138/93
[2017-09-11] MEDS: VERAPAMIL HCL 2.5 MG/ML VIAL IVP PRN ×3 (03:38→18:36)
[2017-09-11] MEDS: METOPROLOL TARTRATE 1 MG/ML 5ML VIAL IV PRN ×5 (04:43→23:22)
[2017-09-11 05:00] LABS: HEMATOCRIT 37.2 % (42-54); MEAN CORPUSCULAR HEMOGLOBIN 31.6 pg (27.0-33.0); MEAN CORPUSCULAR HGB CONC 33.2 g/dL (32.0-36.0); MEAN CORPUSCULAR VOLUME 95.3 fL (79-99); NUCLEATED RED BLOOD CELLS 0.1 % (0.0-0.19); PLATELET COUNT (AUTO) 56 K/uL (130-400); RED CELL DISTRIBUTION WIDTH 15.2 % (11.0-15.5)
[2017-09-11 05:12] LABS: WHITE BLOOD COUNT (AUTO) 40.9 K/uL (4.8-10.8)
[2017-09-11 05:41] LABS: LYMPHOCYTES % (MANUAL) 3 % (22-44); MAN.DIFF COMMENT-IMPRESSION MANUAL DIFFERENTIAL; MONOCYTES % (MANUAL) 3 % (2-9); PLATELET MORPHOLOGY COMMENT DECREASED; SEGMENTED NEUTROPHILS % 94 % (40-70)
[2017-09-11] MEDS: DILTIAZEM HCL 60 MG TABLET PO SCH ×4 (05:41→23:24)
[2017-09-11 05:42] LABS: CREATININE 1.7 mg/dL (0.5-1.5); MAGNESIUM 2.7 mg/dL (1.80-2.40); PHOSPHORUS 6.2 mg/dL (2.5-4.9); POTASSIUM 4.3 mmol/L (3.5-5.1)
[2017-09-11] MEDS: ACETAMINOPHEN 325 MG TAB PO SCH ×3 (05:46→21:27)
[2017-09-11] MEDS: IPRATROPIUM 0.5 MG/2.5 ML INH IH SCH ×4 (06:30→23:57)
[2017-09-11] MEDS: BUDESONIDE 0.5 MG/2 ML INH IH SCH ×2 (06:48→20:04)
[2017-09-11 07:00] VITALS: BP 146/74
[2017-09-11] MEDS: INSULIN R PO SS1 SQ SCH ×4 (07:30→21:00)
[2017-09-11] MEDS ORDERED: SERTRALINE HCL 50 MG TABLET PO SCH (09:00)
[2017-09-11] MEDS: MULTIVITAMIN WITH MINERALS TABLET PO SCH (09:07)
[2017-09-11] MEDS: DOXYCYCLINE HYCLATE 100 MG TABLET PO SCH ×2 (09:07→21:00)
[2017-09-11] MEDS: FAMOTIDINE 20MG TAB 20 MG TAB PO SCH ×2 (09:07→21:00)
[2017-09-11] MEDS: METOPROLOL TARTRATE 25 MG TAB PO SCH ×2 (09:07→21:00)
[2017-09-11] MEDS: MONTELUKAST SODIUM 10 MG TAB PO SCH (09:08)
[2017-09-11] MEDS: DIGOXIN 125 MCG TABLET PO SCH (09:08)
[2017-09-11] MEDS: PREDNISONE 20 MG TABLET PO SCH (09:08)
[2017-09-11 11:00] VITALS: BP 138/72
[2017-09-11] MEDS: CEFEPIME HCL 1 GM VIAL IVP SCH ×3 (11:53→23:06)
[2017-09-11 16:00] VITALS: BP 127/78
[2017-09-11] MEDS: MORPHINE SULFATE 2 MG/ML 1ML SYG IVP PRN ×2 (16:09→18:36)
[2017-09-11] MEDS ORDERED: METHYLPREDNISOLONE SOD SUCC 40MG/ML 1ML IVP SCH (18:00)
[2017-09-11] MEDS ORDERED: AMIODARONE HCL 900 MG in DEXTROSE 5%-WATER 500 ML IV SCH (18:00)
[2017-09-11] MEDS ORDERED: AMIODARONE HCL 900MG/18ML IV STA (18:20)
[2017-09-11] MEDS ORDERED: AMIODARONE HCL 150 MG in DEXTROSE 5%-WATER 100 ML IV SCH (18:30)
[2017-09-11] MEDS ORDERED: AMIODARONE HCL 150 MG in DEXTROSE 5%-WATER 100 ML IV ONE (19:00)
[2017-09-11 19:48] VITALS: BP 125/71
[2017-09-11 23:28] VITALS: BP 111/57
== END 2017-09-12 02:30 | disposition expired | DRG 291 ==
LOC: EDH 20:46 → EDHIP 23:20 → OBSVTOIN 23:20 → 2DH 08-31 04:11
PROVIDERS: ADMIT Internal Medicine Critical Care Medicine; ATTEND Internal Medicine Critical Care Medicine
PROC: 5A09357 Assistance with Respiratory Ventilation, Less than 24 Consecutive Hours, Continuous Positive Airway Pressure (ICD-10-PCS; principal; 2017-08-31)
PROC: 5A09357 Assistance with Respiratory Ventilation, Less than 24 Consecutive Hours, Continuous Positive Airway Pressure (ICD-10-PCS; 2017-09-02)
PROC: 5A09357 Assistance with Respiratory Ventilation, Less than 24 Consecutive Hours, Continuous Positive Airway Pressure (ICD-10-PCS; 2017-09-03)
PROC: 5A09357 Assistance with Respiratory Ventilation, Less than 24 Consecutive Hours, Continuous Positive Airway Pressure (ICD-10-PCS; 2017-09-04)
PROC: 5A09357 Assistance with Respiratory Ventilation, Less than 24 Consecutive Hours, Continuous Positive Airway Pressure (ICD-10-PCS; 2017-09-05)
PROC: 5A09357 Assistance with Respiratory Ventilation, Less than 24 Consecutive Hours, Continuous Positive Airway Pressure (ICD-10-PCS; 2017-09-06)
PROC: 5A09357 Assistance with Respiratory Ventilation, Less than 24 Consecutive Hours, Continuous Positive Airway Pressure (ICD-10-PCS; 2017-09-07)
PROC: 5A09357 Assistance with Respiratory Ventilation, Less than 24 Consecutive Hours, Continuous Positive Airway Pressure (ICD-10-PCS; 2017-09-08)
PROC: 5A09357 Assistance with Respiratory Ventilation, Less than 24 Consecutive Hours, Continuous Positive Airway Pressure (ICD-10-PCS; 2017-09-09)
PROC: 5A09357 Assistance with Respiratory Ventilation, Less than 24 Consecutive Hours, Continuous Positive Airway Pressure (ICD-10-PCS; 2017-09-10)
DX: I13.0 Hypertensive heart and chronic kidney disease with heart failure and stage 1 through stage 4 chronic kidney disease, or unspecified chronic kidney disease (principal); I50.31 Acute diastolic (congestive) heart failure; J96.21 Acute and chronic respiratory failure with hypoxia; J18.9 Pneumonia, unspecified organism; I48.0 Paroxysmal atrial fibrillation; I27.20 Pulmonary hypertension, unspecified; I48.2 Chronic atrial fibrillation; J84.10 Pulmonary fibrosis, unspecified; J96.22 Acute and chronic respiratory failure with hypercapnia; J44.0 Chronic obstructive pulmonary disease with (acute) lower respiratory infection; J44.1 Chronic obstructive pulmonary disease with (acute) exacerbation; I46.9 Cardiac arrest, cause unspecified; Z66 Do not resuscitate; I50.9 Heart failure, unspecified; E66.9 Obesity, unspecified; E78.5 Hyperlipidemia, unspecified; G89.29 Other chronic pain; J61 Pneumoconiosis due to asbestos and other mineral fibers; K74.60 Unspecified cirrhosis of liver; N18.9 Chronic kidney disease, unspecified; Z77.090 Contact with and (suspected) exposure to asbestos; F32.9 Major depressive disorder, single episode, unspecified; Z68.26 Body mass index [BMI] 26.0-26.9, adult; Z79.01 Long term (current) use of anticoagulants; Z79.899 Other long term (current) drug therapy; Z87.891 Personal history of nicotine dependence; Z99.81 Dependence on supplemental oxygen
CPT/HCPCS: 36415; 36600; 70450; 71045; 71046; 71250; 74176; 80048; 80053; 80162; 81003; 82550; 82553; 82803; 82948; 83605; 83735; 83874; 83880; 84100; 84443; 84484; 85007; 85025; 85027; 85610; 85730; 87040; 87088; 88313; 93005; 93306; 94640; 94660; 94664; 97039; 99291; A4218; J0282; J0692; J1160; J1650; J1815; J1956; J2270; J2405; J2920; J2930; J3475; J3490; J7030; J7060